=== PATIENT | female | born 1985 ===

== ENCOUNTER 2024-12-01 05:40 | Day surgery (SDC) | payer OTHER ==
[2024-12-01] MEDS ORDERED: DIPHENHYDRAMINE HCL 50 MG/ML VIAL 1ML IV ONE (09:30)
[2024-12-01] MEDS ORDERED: fentaNYL CITRATE 50 MCG/ML AMPUL IV PUSH ONE (09:30)
[2024-12-01] MEDS ORDERED: MIDAZOLAM HCL/PF 5 MG/ML VIAL IV ONE (09:30)
== END 2024-12-01 10:15 | disposition home or self-care (01) ==
LOC: AMB-ENDOS 05:40
PROVIDERS: ATTEND Surgery
DX: K31.7 Polyp of stomach and duodenum (principal); R10.13 Epigastric pain; K44.9 Diaphragmatic hernia without obstruction or gangrene; E66.09 Other obesity due to excess calories